=== PATIENT | female | born 2000 | race Caucasian/White ===

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

== ENCOUNTER 2022-03-10 15:10 | Outpatient (REF) | payer BC, SELFPAY ==
[2022-03-12 09:43] LABS: COVID-19 RT-PCR UVMMC Result Negative (Negative)
== END 2022-03-10 15:11 | disposition home or self-care (01) ==
LOC: LBN 15:10
PROVIDERS: Visit Provider Physician Assistant Medical
DX: Z20.822 Contact with and (suspected) exposure to COVID-19 (principal); J06.9 Acute upper respiratory infection, unspecified
CPT/HCPCS: U0003

== ENCOUNTER 2022-04-09 15:19 | Emergency (ER) | payer BC, SELFPAY ==
[2022-04-09 15:28] VITALS: BP 131/68; PULSE 93; RESP 16; TEMP 36.9; O2SAT 100
[2022-04-09 15:47] LABS: Bilirubin Negative (Negative); Blood Large (Negative); Clarity Cloudy (Clear); Glucose Negative (Negative); Ketones Negative (Negative); Leukocyte Esterase Moderate (Negative); Nitrite Negative (Negative); Specific Gravity >= 1.030 (1.005-1.025); Urobilinogen 0.2 EU/dL (Up TO 0.2)
[2022-04-09 16:03] LABS: Bacteria Rare HPF (Negative); C & S Indicated? Yes; Crystals Negative HPF (Negative); Epithelial Cells Rare HPF (Negative); Mucus Negative (Negative); Other Cells Few Renal (Negative); RBC >50 HPF (0-2)
--- NOTE | 2022-04-09 16:38 | ED.GENADUL_ITS ---
Discharge Plan Disposition Patient Disposition: Home Condition: Stable Discharge Details Clinical Impression: UTI (urinary tract infection) Primary Care Provider: Marietta Smith ED Provider: Emma Lam Home Meds and New Rx's Prescriptions: New phenazopyridine [Pyridium] 100 mg tablet 100 mg PO TID PRNQty: 6 0RF cephalexin 500 mg tablet 500 mg PO BID 7 Days Qty: 14 0RF No Action Mirena 20 mcg/24 hours (7 yrs) 52 mg intrauterine device 1 device intrauterine ONCE Qty: 1 0RF Vyvanse 10 mg capsule 10 mg PO QAM MDD 1 Qty: 30 0RF diphenhydramine HCl [Benadryl] 25 mg capsule 25 mg PO QHS PRN Zyrtec 10 mg Capsule 10 mg PO DAILY Discharge Instructions Instructions: Urinary Tract Infection in Women (ED) Additional Instructions: Your urine does show evidence of urinary tract infection, take the antibiotic with yogurt or probiotic daily as directed. Please take the antibiotic until is completely gone. Take the Pyridium as directed. This will turn your urine bright orange and may stain your close. Please take Tylenol or Ibuprofen with food every 4-6 hours as needed for pain and swelling. Follow up with women's wellness or primary care provider in 3-5 days for further eval regarding your IUD or if not feeling any better. Return to ED sooner if any worsening fever, vomiting, body aches chills worsening abdominal pain not relieved by Tylenol or ibuprofen or concerns. Increase oral fluids. Referrals: Marietta Smith MD [Primary Care Provider] - Return if symptoms worsen Olga Lidia Aiken CNM [[facility] NURSE SALES AUDIT CLERK] - 3 days Medical Decision Making 21-year-old female presents to the ER with chief complaint of dysuria, urinary hesitancy and suprapubic abdominal pressure over the last week. She is concerned for UTI. Urinalysis does show large blood, moderate leukocytes, greater than 50 RBCs 10- 20 WBCs culture is pending at this time. Patient has no flank pain to indicate kidney stone. I did instruct her to follow-up with women's wellness for any concerns of her IUD for further evaluation. I will place patient on cephalexin and give Pyridium first dose is given here and 2 bottles to go. Discussed home care and follow-up care strict return instructions patient she verbalizes understanding and is in agreement with the plan. This text was generated using [employer] dictation system, please disregard any oddities of phrase or misspellings. Lab Data Lab results reviewed: Yes I reviewed the patient's lab results. Labs: 04/09/22 15:40 Urine - Reflex from Ua Urine Culture - Pending Laboratory Tests Range/Units 04/09/22 15:40 Urine Color (Yellow) Yellow Urine Clarity (Clear) Cloudy Urine pH (5-8) 7.0 Ur Specific [place] (1.005-1.025) >= 1.030 H Urine Protein (Negative) mg/dL 100 H Urine Ketones (Negative) mg/dL Negative Urine Blood (Negative) Large H Urine Nitrite (Negative) Negative Urine Bilirubin (Negative) Negative Urine Urobilinogen (Up TO 0.2) EU/dL 0.2 Ur Leukocyte Esterase (Negative) Moderate H Urine RBC (0-2) HPF >50 H Urine WBC (0-5) HPF 10-20 H Ur Epithelial Cells (Negative) HPF Rare Urine Crystals (Negative) HPF Negative Urine Bacteria (Negative) HPF Rare Urine Mucus (Negative) Negative Urine Other (Negative) Few Renal Ur Culture Indicated? Yes Urine Glucose (Negative) mg/dL Negative HPI General Mode of arrival: ambulatory . Date/Time Provider Initiated Documentation: 04/09/22 15:29 . Limitations to Documentation: no limitations . Information obtained by: patient, RN notes reviewed and old records reviewed . HPI Narrative: 21-year-old female presents to the ER with chief complaint of dysuria, urinary hesitancy and suprapubic abdominal pressure over the last week. She is concerned for UTI. She does report some nausea no vomiting, no diarrhea, no abdominal bloating no other associated symptoms or concerns. Denies any fever. Past medical history includes anxiety, ADHD, nicotine dependence, Use, depersonalization derealization disorder. Related Data Home Medications Medication Instructions Recorded Confirmed diphenhydramine HCl 25 mg capsule 25 mg PO QHS PRN 10/19/21 04/09/22 (Benadryl) levonorgestrel 20 mcg/24 hours (8 1 device intrauterine ONCE #1 ea 11/01/21 04/09/22 yrs) 52 mg intrauterine device (Mirena) lisdexamfetamine 10 mg capsule 10 mg PO QAM #30 caps 12/29/21 04/09/22 (Vyvanse) cephalexin 500 mg tablet 500 mg PO BID 7 days #14 tabs 04/09/22 cetirizine 10 mg capsule (Zyrtec) 10 mg PO DAILY 04/09/22 04/09/22 phenazopyridine 100 mg tablet 100 mg PO TID PRN 6 doses #6 tabs 04/09/22 (Pyridium) Previous Rx's Medication Instructions Recorded levonorgestrel 20 mcg/24 hours (8 1 device intrauterine ONCE #1 ea 11/01/21 yrs) 52 mg intrauterine device (Mirena) lisdexamfetamine 10 mg capsule 10 mg PO QAM #30 caps 12/29/21 (Vyvanse) cephalexin 500 mg tablet 500 mg PO BID 7 days #14 tabs 04/09/22 phenazopyridine 100 mg tablet 100 mg PO TID PRN 6 doses #6 tabs 04/09/22 (Pyridium) Allergies Allergy/AdvReac Type Severity Reaction Status Date / Time nickel Allergy Verified 04/09/22 15:31 General Stated Complaint: Urinary ELI: 4 Review of Systems All systems reviewed & are unremarkable except as noted in HPI and below PFSH All Active Problems (Updated 04/09/22 @ 16:45 by Emma Lam NP) UTI (urinary tract infection) (Acute) Marijuana use (Acute) Nicotine dependence (Acute) IUD surveillance (Acute 11/01/21) Mirena Lipoblastoma (Acute) Bipolar 2 disorder, major depressive episode (Chronic) with worsening anxiety and worsening dissociative symptoms during depression Anxiety (Chronic) Depersonalization-derealization disorder (Chronic) Myopia of both eyes (Chronic 11/13/14) Wears glasses ADHD (attention deficit hyperactivity disorder), combined type (Chronic) Medical History COVID-19 moderate symptoms, normal EKG, persistent brain fog and some worsening disassociative thoughts Menorrhagia with irregular cycle (03/01/17) Managed with Mirena Surgical History cyst removal (~2012) 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 Pets and animals: Yes (3 dogs) Pets and animals: dog(s) Sexually active: Yes Do you think of yourself as: straight/heterosexual Current gender identity: female Do you feel safe at home: Yes Do you feel safe in your relationship?: Yes Female Reproductive History Menstrual Age of Menarche: 15 Duration of menses: 3-5 days control method: progestin IUCD and condoms History History 0 Para Hx # Term Pregnancies Multiple births Hx # Pregnancies Ectopic pregnancies AB induced Hx Number of Living Children AB spontaneous Exam Narrative Exam Narrative: Constitutional: Alert and oriented x3. Appears stated age. Normal body habitus. Head: Normocephalic, no trauma. Eyes: Pupils PERRL, Red reflex noted, EOM's intact. Eyelids symmetrical without lesions, discharge, or swelling. Chest: RRR, Normal S1, S2, distal pulses intact. Resp: Lungs clear to auscultation bilaterally, no wheezes, rales, or rhonchi. Abdomen: Soft, non-distended, Normoactive bowel sounds all 4 quads. Mild suprapubic tenderness no right lower quadrant a small mid palpation. Musculoskeletal: Normal gait, 5/5 strength to all four extremities. Skin: No suspicious rashes or lesions. Capillary refill less than 2 sec. Hematologic/Lymphatic: No ecchymosis, no lymphadenopathy. Course Vital Signs Vital signs: Vital Signs Temperature 36.9 C 04/09/22 15:28 Pulse 93 H 04/09/22 15:28 Respiratory Rate 16 04/09/22 15:28 Blood Pressure 131/68 04/09/22 15:28 Pulse Oximetry 100 04/09/22 15:28 Temperature 36.9 C 04/09/22 15:28 Temperature Source Skin 04/09/22 15:28 Pulse 93 H 04/09/22 15:28 Respiratory Rate 16 04/09/22 15:28 Respiratory Effort 04/09/22 15:32 Blood Pressure 131/68 04/09/22 15:28 Blood Pressure Position Sitting 04/09/22 15:28 Pulse Oximetry 100 04/09/22 15:28 Oxygen Delivery Method Room Air 04/09/22 15:28 Oxygen Flow Rate 0 04/09/22 15:28 Pain Level 7 04/09/22 15:53 Lab/Test Results Lab/Test Results: 04/09/22 15:40 Urine - Reflex from Ua Urine Culture - Pending Laboratory Tests Range/Units 04/09/22 15:40 Urine Color (Yellow) Yellow Urine Clarity (Clear) Cloudy Urine pH (5-8) 7.0 Ur Specific [place] (1.005-1.025) >= 1.030 H Urine Protein (Negative) mg/dL 100 H Urine Ketones (Negative) mg/dL Negative Urine Blood (Negative) Large H Urine Nitrite (Negative) Negative Urine Bilirubin (Negative) Negative Urine Urobilinogen (Up TO 0.2) EU/dL 0.2 Ur Leukocyte Esterase (Negative) Moderate H Urine RBC (0-2) HPF >50 H Urine WBC (0-5) HPF 10-20 H Ur Epithelial Cells (Negative) HPF Rare Urine Crystals (Negative) HPF Negative Urine Bacteria (Negative) HPF Rare Urine Mucus (Negative) Negative Urine Other (Negative) Few Renal Ur Culture Indicated? Yes Urine Glucose (Negative) mg/dL Negative POC- Test(urine) Negative PAWSS Have you Ever Experienced Previous Episodes of Alcohol Withdrawal?: No Have you ever Experienced Withdrawal Seizures?: No Have you ever Experienced Delirium Tremens(DT)s?: No Have you ever undergone Alcohol Rehabilitation Treatment (i.e, inpt ot outpatient treatment programs)?: No Have you ever Experienced Blackouts?: No Have you ever Combined Alcohol with other Downers within the last 90 days?: No Have you ever Combined Alcohol with any other Substance of Abuse during the last 90 days?: No Positive Blood Alcohol level on Presentation? [PCS.BAL]: No Evidence of Increased Autonomic Activity (i.e. HR>120, tremor, sweating, agitation, nausea)?: No Result: 0
[2022-04-09] MEDS: Cephalexin 500 MG CAP PO (16:53)
[2022-04-09] MEDS: Cephalexin 500 MG CAP, 2 CAPS/BTL PO (16:53)
[2022-04-09] MEDS: Phenazopyridine 100 MG TAB PO (16:53)
[2022-04-09] MEDS: Phenazopyridine 100 MG TAB, 2 TABS/BTL PO (16:54)
== END 2022-04-09 16:58 | disposition home or self-care (01) ==
PROVIDERS: Emergency Provider Registered Nurse Emergency
DX: N39.0 Urinary tract infection, site not specified (principal); B96.89 Other specified bacterial agents as the cause of diseases classified elsewhere
CPT/HCPCS: 81025; 99283; 81003; 81015; 87086

== ENCOUNTER 2022-11-24 21:19 | Outpatient (REF) | payer BC, SELFPAY | END 2022-11-24 21:20 | disposition home or self-care (01) | LOC: LBN 21:19 | PROVIDERS: Visit Provider Physician Assistant Medical | DX: R09.81 Nasal congestion (principal) | CPT/HCPCS: 87070 ==

== ENCOUNTER 2022-12-30 18:09 | Emergency (ER) | payer MEDICAID, SELFPAY ==
[2022-12-30 18:12] VITALS: PULSE 85; RESP 24; TEMP 36.9; O2SAT 100
--- NOTE | 2022-12-30 18:30 | DI.CT_ITS ---
Exam(s) CT HEAD WO EXAM: CT HEAD WO CLINICAL HISTORY: hit front of head one week ago, dizzy, nausea. TECHNIQUE: Imaging Protocol: Axial computed tomography images with coronal and sagittal reformatted images were created and reviewed COMPARISON: No exams were available for comparison FINDINGS: There are no skull fractures. There is no fluid in the visualized paranasal sinuses. There is no evidence of intracranial hemorrhage, mass effect, or shift of midline structures. There are no extra-axial fluid collections. The ventricles are not enlarged or shifted and there is no blo od within the ventricular system nor within the basal cisterns. IMPRESSION: No acute intracranial findings on this noninfused CT scan of the brain. RADIATION DOSE DELIVERED: 693.95mGy.cm Total DLP DATA REPOSITORY: All CT scans at this facility are submitted to the National Radiology Data Registry (NRDR) Dose Index Registry (DIR) with the [employer] (ACR). RADIATION OPTIMIZATION: All CT scans at this facility use at least one of these dose optimization te chniques: automated exposure control; mA and/or kV adjustment per patient size (includes targeted exa ms where dose is matched to clinical indication); or iterative reconstruction.
[2022-12-30] MEDS: Dexamethasone 10 MG/ML VIAL PO (19:05)
[2022-12-30] MEDS: Ondansetron O.D.T. 4 MG TABEF SL (19:05)
--- NOTE | 2022-12-30 19:05 | W.ED.GENAD ---
Discharge Plan Disposition Patient Disposition: Home Condition: Improving Discharge Details Chief Complaint: HeadInjury Clinical Impression: Head injury, Concussion Primary Care Provider: Marietta Smith ED Provider: Rohith Johnson Home Meds and New Rx's Prescriptions: No Action Mirena 20 mcg/24 hours (7 yrs) 52 mg intrauterine device 1 device intrauterine ONCE Qty: 1 0RF diphenhydramine HCl [Benadryl] 25 mg capsule 25 mg PO QHS PRN ketoconazole 2 % shampoo 1 applic topical ONCE Qty: 120 0RF Rx Instructions: apply once daily for 3 days, repeat in 2 weeks as needed Vyvanse 10 mg capsule 10 mg PO QAM MDD 1 Qty: 30 0RF Zyrtec 10 mg Capsule 10 mg PO DAILY Discharge Instructions Instructions: Concussion (ED), Head Injury (ED) Additional Instructions: Please practice brain rest which includes avoiding bright lights and loud noises as well as heavy stimulation. Take tomorrow off from work. Please follow-up with your primary care physician and neurology. Please return to the emergency department for any worsening symptoms Stand Alone Forms: Work Release Medical Decision Making 22-year-old female presents 1 week after excellently running headfirst into a tree sustaining superficial laceration to brow, no loss of consciousness, since then has had headache nausea and dizziness. No vomiting. No other trauma. Patient neurologically intact alert and oriented, cranial nerves II through XII intact, 5 and 5 strength upper and lower extremities, ambulatory without ataxia. No signs of thoracoabdominal or extremity trauma. Likely concussion however given consistent symptomatology will obtain CT head to assess for intracerebral hemorrhage. Trial of dexamethasone and Zofran. Close reassessment. Likely home with concussion precautions and neurology follow-up 20: 18 patient resting comfortably neurologically intact. CT unremarkable for intracerebral hemorrhage skull fracture or edema. Likely symptoms related to concussion. Feeling better after medications. Given home care instructions and return precautions. Will be given neurology follow-up HPI General Date/Time Provider Initiated Documentation: 12/30/22 18:25. HPI Narrative: 22-year-old female presents 1 week after sustaining head injury, ran into a tree with her forehead, no loss of conscious, did sustain superficial laceration to brow that has healed since then, has had intermittent dizziness and nausea and headaches since this event. Related Data Home Medications Medication Instructions Recorded Confirmed diphenhydramine HCl 25 mg capsule 25 mg PO QHS PRN 10/19/21 10/24/22 (Benadryl) levonorgestrel 21 mcg/24 hours (8 1 device intrauterine ONCE #1 ea 11/01/21 10/24/22 yrs) 52 mg intrauterine device (Mirena) cetirizine 10 mg capsule (Zyrtec) 10 mg PO DAILY 04/09/22 10/24/22 lisdexamfetamine 10 mg capsule 10 mg PO QAM #30 caps 07/14/22 10/24/22 (Vyvanse) ketoconazole 2 % shampoo 1 applic topical ONCE #120 mL 10/24/22 10/24/22 Previous Rx's Medication Instructions Recorded levonorgestrel 21 mcg/24 hours (8 1 device intrauterine ONCE #1 ea 11/01/21 yrs) 52 mg intrauterine device (Mirena) lisdexamfetamine 10 mg capsule 10 mg PO QAM #30 caps 07/14/22 (Vyvanse) ketoconazole 2 % shampoo 1 applic topical ONCE #120 mL 10/24/22 Allergies Allergy/AdvReac Type Severity Reaction Status Date / Time nickel Allergy Verified 10/24/22 15:52 General Stated Complaint: HeadInjury ELI: 3 Review of Systems Narrative: Review of Systems Constitutional: negative Eyes: negative ENT: negative Cardiovascular: negative Respiratory: negative Gastrointestinal: negative : negative Musculoskeletal: negative Skin: negative Neurologic: Headache dizziness nausea Psych: negative PFSH All Active Problems (Updated 12/30/22 @ 20:14 by Rohith Johnson MD) Head injury (Acute) Concussion (Acute) Fatigue (Acute) Dysuria (Acute) Marijuana use (Acute) Nicotine dependence (Acute) IUD surveillance (Acute 11/01/21) Mirena Lipoblastoma (Acute) Bipolar 2 disorder, major depressive episode (Chronic) with worsening anxiety and worsening dissociative symptoms during depression Anxiety (Chronic) Depersonalization-derealization disorder (Chronic) Myopia of both eyes (Chronic 11/13/14) Wears glasses ADHD (attention deficit hyperactivity disorder), combined type (Chronic) Medical History COVID-19 moderate symptoms, normal EKG, persistent brain fog and some worsening disassociative thoughts Menorrhagia with irregular cycle (03/01/17) Managed with Mirena Surgical History cyst removal (~2012) 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 Pets and animals: Yes (3 dogs) Pets and animals: dog(s) Sexually active: Yes Do you think of yourself as: straight/heterosexual Current gender identity: female Do you feel safe at home: Yes Do you feel safe in your relationship?: Yes Female Reproductive History Menstrual Age of Menarche: 15 Duration of menses: 3-5 days control method: progestin IUCD and condoms History History 0 Para Hx # Term Pregnancies Multiple births Hx # Pregnancies Ectopic pregnancies AB induced Hx Number of Living Children AB spontaneous Exam Narrative Exam Narrative: Physical Examination General: alert, awake, cooperative, resting comfortably, no acute distress HEENT: normocephalic, superficial linear scar to right forehead/brow hemostatic no signs of infection no signs of foreign body; PERRL, EOM intact, conjunctiva normal; no nasal discharge; moist mucous membranes, oral and pharyngeal mucosa normal, tolerating secretions Neck: supple, trachea midline; full ROM Chest: normal to inspection Respiratory: normal respiratory effort, speaking in full sentences, clear to auscultation, no wheezing, rales or rhonchi Cardiac: regular rate, regular rhythm, S1S2 intact, no murmurs rubs or gallops GI: abdomen soft, non-tender, non-distended; no palpable mass or hepatosplenomegaly Skin: no lesions, rashes or trauma appreciated Neuro: AAOx3, normal speech, moving all extremities; cranial nerves II through XII intact, 5 out of 5 strength upper and lower extremities, ambulatory without assistance no ataxia Extremities: Ataxia Psych: Appropriate mood and affect Course Vital Signs Vital signs: Vital Signs Temperature 36.9 C 12/30/22 18:12 Pulse 85 12/30/22 18:12 Respiratory Rate 24 12/30/22 18:12 Pulse Oximetry 100 12/30/22 18:12 Temperature 36.9 C 12/30/22 18:12 Temperature Source Oral 12/30/22 18:12 Pulse 85 12/30/22 18:12 Respiratory Rate 12/30/22 18:12 Blood Pressure Position Sitting 12/30/22 18:12 Pulse Oximetry 100 12/30/22 18:12 Oxygen Delivery Method Room Air 12/30/22 18:12 Oxygen Flow Rate 0 12/30/22 18:12 Pain Level 4 12/30/22 18:12
--- NOTE | 2022-12-30 19:41 | DI.VRAD_ITS ---
PROCEDURE INFORMATION: Exam: CT Head Without Contrast Exam date and time: 12/30/2022 7:19 PM Age: 22 years old Clinical indication: Injury or trauma; Other: Hit front of head one week ago, dizzy, nausea TECHNIQUE: Imaging protocol: Computed tomography of the head without contrast. COMPARISON: SOFT TISSUE HEAD OR NECK US 03/23/2017 12:31 PM FINDINGS: Brain: Normal. No hemorrhage. Unremarkable white matter. No mass effect. Cerebral ventricles: No ventriculomegaly. Paranasal sinuses: Visualized sinuses are unremarkable. No fluid levels. Chronic mucoperiosteal thickening in the left aspect of the sphenoid sinus Mastoid air cells: Visualized mastoid air cells are well aerated. Bones/joints: Left nasal turbinate cameron bullosa. No acute fracture. Soft tissues: Unremarkable. IMPRESSION: 1. No acute intracranial abnormality. 2. No intracranial hemorrhage. 3. No skull fracture. Dictated and Authenticated by: Chandana Arrington MD. Ordering:NIDIA Newberry MD
[2022-12-30 20:31] VITALS: BP 112/61; PULSE 75; TEMP 36.6; O2SAT 99
--- NOTE | 2022-12-30 22:11 | NUR.NOTE ---
Referral faxed to [facility] Neurology for follow up on concussion next week.
== END 2022-12-30 20:27 | disposition home or self-care (01) ==
PROVIDERS: Emergency Provider Emergency Medicine
DX: S06.0X0A Concussion without loss of consciousness, initial encounter (principal); W22.8XXA Striking against or struck by other objects, initial encounter
CPT/HCPCS: 81025; 99284; 70450; 99283; J1100

== ENCOUNTER 2023-05-13 15:15 | Outpatient (REF) | payer MEDICAID, SELFPAY ==
[2023-05-13 15:27] LABS: Source Nasal/Nares
[2023-05-13 16:14] LABS: COVID-19 PCR Negative (Negative)
== END 2023-05-13 15:16 | disposition home or self-care (01) ==
LOC: LBN 15:15
PROVIDERS: Visit Provider Physician Assistant Medical
DX: J02.9 Acute pharyngitis, unspecified (principal); Z20.822 Contact with and (suspected) exposure to COVID-19
CPT/HCPCS: 87635; 87070

== ENCOUNTER 2023-08-29 15:32 | Outpatient (REF) | payer MEDICAID, SELFPAY ==
[2023-08-31 14:43] LABS: Chlamydia Result Negative (Negative); GC Result Negative (Negative)
== END 2023-08-29 15:33 | disposition home or self-care (01) ==
LOC: LBN 15:32
PROVIDERS: Visit Provider Nurse Practitioner Women's Health
DX: N76.0 Acute vaginitis (principal); Z11.3 Encounter for screening for infections with a predominantly sexual mode of transmission
CPT/HCPCS: 87491; 87591; 87480; 87510; 87660

== ENCOUNTER 2024-05-16 14:12 | Emergency (ER) | payer MEDICAID, SELFPAY ==
[2024-05-16 14:19] VITALS: BP 101/54; PULSE 100; RESP 28; TEMP 37.3; O2SAT 100
--- NOTE | 2024-05-16 14:45 | RT.EKG_ITS ---
APPROVED REPORT Exam: Resting ECG Reason for Exam: palpitations Patient Location: E HR:90 bpm ECG Measurements Heart Rate 90 AXIS VA 154 P 50 QRSd 99 QRS 114 QT 324 T 57 QTc 396 Conclusion Sinus rhythm, rate 90 No interval abnormalities No STEMI
[2024-05-16] MEDS: LORazepam 0.5 MG TAB PO (14:58)
[2024-05-16] MEDS: Ketorolac 15 MG/ML VIAL IM (14:58)
[2024-05-16] MEDS: Acetaminophen 500 MG TAB 1000 MG PO (14:58)
[2024-05-16 15:03] VITALS: RESP 18
--- NOTE | 2024-05-16 15:30 | DI.CT_ITS ---
Exam(s) CT HEAD WO EXAM: CT HEAD WO CLINICAL HISTORY: JOY, L. eye pain, different from typical migraines. TECHNIQUE: Imaging Protocol: Axial computed tomography images with coronal and sagittal reformatted images were created and reviewed COMPARISON: CT CT HEAD WO from 12/30/2022 FINDINGS: Ventricles and Extra axial spaces: Normal in size and morphology for the patient's age. Hemorrhage: None. Cerebral parenchyma: No evidence of acute infarct or mass. Midline shift: None. Brainstem/Cerebellum: Normal. Calvarium: Normal. Visualized Paranasal sinuses:Clear. Mastoids: Clear. Soft Tissues: Unremarkable. ORBITS: Unremarkable. PITUITARY: Not enlarged. IMPRESSION: No acute intracranial process. RADIATION DOSE DELIVERED: Total DLP DATA REPOSITORY: All CT scans at this facility are submitted to the National Radiology Data Registry (NRDR) Dose Index Registry (DIR) with the [employer] (ACR). RADIATION OPTIMIZATION: All CT scans at this facility use at least one of these dose optimization te chniques: automated exposure control; mA and/or kV adjustment per patient size (includes targeted exa ms where dose is matched to clinical indication); or iterative reconstruction.
[2024-05-16 15:35] LABS: COVID-19 PCR Negative (Negative); Influenza A PCR Negative (Negative); Influenza B PCR Negative (Negative); RSV PCR Negative (Negative)
[2024-05-16 15:36] LABS: Source Nasopharynx
[2024-05-16 15:39] VITALS: BP 138/52; PULSE 88; RESP 20; O2SAT 99
--- NOTE | 2024-05-16 16:24 | ED.GENADUL_ITS ---
Discharge Plan Disposition Patient Disposition: Home Condition: Stable Discharge Details Clinical Impression: Migraine headache with aura, Panic attack, Upper respiratory infection, viral Primary Care Provider: Cheryl Polanco ED Provider: Amara Rodriguez Home Meds and New Rx's Prescriptions: New hydroxyzine HCl 25 mg tablet 25 mg PO TID PRN (Reason: anxiety) Qty: 14 0RF No Action Mirena 20 mcg/24 hours (7 yrs) 52 mg intrauterine device 1 device intrauterine ONCE Qty: 1 0RF diphenhydramine HCl [Benadryl] 25 mg capsule 25 mg PO QHS PRN lisdexamfetamine [Vyvanse] 10 mg capsule 10 mg PO QAM MDD 1 Qty: 30 0RF Discharge Instructions Instructions: Panic Attack ED Additional Instructions: You were seen in the emergency department today for evaluation of medical complaints including a headache, recent viral upper respiratory infection, and a panic attack. In our department you have a full physical examination performed, had an EKG that did not show any abnormalities in your heart, and had a CT scan of your brain that did not show any signs of bleeding, mass, or other abnormalities. You received medications for management of your anxiety as well as your headache. At this time, it is safe for you to go home and follow-up with your outpatient providers including your therapist as well as your primary care doctor. I did provide you a short course of hydroxyzine, which you can trial as needed for panic and anxiety. Please use caution as this medication can cause drowsiness, and avoid driving or mixing with alcohol. Please follow- up with your primary care provider in the next few days to discuss this visit and any symptoms that change, worsen, or persist. Thank you for allowing us to be part of your care. Discharge Data Discharge Date/Time-TO BE ENTERED AT DEPARTURE: 05/16/24 17:12 HPI General Mode of arrival: ambulatory . Date/Time Provider Initiated Documentation: 05/16/24 14:15 . Limitations to Documentation: no limitations . Information obtained by: patient, family and old records reviewed . HPI Narrative: HPI: This is a 23-year-old female patient with a history of bipolar 2, ADHD, anxiety, who is presenting for evaluation of anxiety and headache. She states that she has a history of migraines, states that she has had excessive stress over the last 3 weeks, working significantly, restarting school and has not had any time off to rest or recover. She also feels like she is starting to get sick, with runny nose, subjective fever, and bodyaches. She reports that she started having a panic attack and felt like she was not in her body, felt like she was going to , and states that she is having intermittent headaches that does not feel exactly typical for her migraines. She has noted a sensation of pain behind her left eye, which comes and goes and is associated with brief changes in vision, noted some spasming and flexing of her left hand during her panic attack on the way here. The patient reports that she has a safe place to reside, states that she is not experiencing suicidal or homicidal thoughts, though she has in the heat of her panic attacks wished that she was not experiencing it. She has an outpatient counselor that she met with yesterday and feels very well supported from a mental health standpoint. She states that she has not had anything to eat yet today, states that she uses nicotine and alcohol on the weekends but no illicit substances reported. She has not tried any medications in the outpatient environment for management of her symptoms. Exam: Gen: Awake and alert, appears acutely anxious, tearful HEENT: Non-icteric sclera Neck: Supple Lungs: No apparent respiratory distress, normal respiratory effort. Lung sounds clear and equal bilaterally CV: Appears well perfused, heart with regular rate and rhythm, strong distal pulses Abdomen: Non-distended MSK: Moves 4 extremities without apparent limitation in ROM Skin: Visualized skin without rashes, cyanosis. Neuro: Normal Gait, cranial nerves II through XII intact and symmetrical bilaterally, 5 out of 5 strength x 4 extremities, no sensory deficits. Psych: Denying active suicidal or homicidal ideation MDM: This is a 23-year-old female patient presenting for evaluation of anxiety and headache. My differential includes but is not limited to primary anxiety disorder, panic attack, migraine, tension headache, cluster headache. I c ertainly considered subarachnoid hemorrhage, intracranial mass lesion, though I am reassured by the patient's intact neurologic examination. I considered arrhythmia, metabolic and electrolyte derangements, anemia, dehydration. I did shared decision-making conversation with the patient, who states that she wants to avoid any IVs, she is amenable to intramuscular medications. I am reassured by her hemodynamic stability, I do not feel like she absolutely requires intravenous access for laboratory studies or advanced imaging. We will obtain a Fluvid, EKG, and provided patient with a dose of Tylenol, Toradol, and a small dose of Ativan for her anxiety. ED Course: On reassessment, the patient reports that her anxiety has improved, but she is continuing to feel headache and is very concerned that she could have something intracranially causing her symptoms given the change from her baseline migraines. She is desiring of advanced imaging and therefore we will proceed with Noncon head CT. CT was independently reviewed by myself, and shows no evidence of intracranial hemorrhage. This did offer the patient some reassurance, and at this time she is desiring of discharge home. I did provide her with a short course of hydroxyzine for ongoing panic symptoms, and counseled her on avoidance of driving or mixing this medication with alcohol as it can cause sedation. The patient is well tied in with outpatient resources including therapy, and I recommended PCP follow-up to discuss any ongoing headache or panic symptoms. At this time, the patient has had a full medical evaluation and is safe for discharge to home. They are hemodynamically stable, ambulatory, and tolerating PO. They are understanding of the follow-up plan and return precautions. They left our facility without incident. Amara Rodriguez MD Related Data Home Medications ?Medication ?Instructions ?Recorded ?Confirmed diphenhydramine HCl 25 mg capsule 25 mg PO QHS PRN 10/19/21 05/16/24 (Benadryl) levonorgestrel 21 mcg/24 hr (up to 1 device intrauterine ONCE #1 ea 11/01/21 05/16/24 8 years) 52 mg intrauterine device (Mirena) lisdexamfetamine 10 mg capsule 10 mg PO QAM #30 caps 07/14/22 05/16/24 (Vyvanse) hydroxyzine HCl 25 mg tablet 25 mg PO TID PRN anxiety #14 tabs 05/16/24 Previous Rx's ?Medication ?Instructions ?Recorded levonorgestrel 21 mcg/24 hr (up to 1 device intrauterine ONCE #1 ea 11/01/21 8 years) 52 mg intrauterine device (Mirena) lisdexamfetamine 10 mg capsule 10 mg PO QAM #30 caps 07/14/22 (Vyvanse) hydroxyzine HCl 25 mg tablet 25 mg PO TID PRN anxiety #14 tabs 05/16/24 Allergies Allergy/AdvReac Type Severity Reaction Status Date / Time nickel Allergy Other (See Verified 12/06/23 09:12 Comment) General Stated Complaint: Anxiety ELI: 4 Course Vital Signs Vital signs: Vital Signs Temperature 37.3 C 05/16/24 14:19 Pulse 100 H 05/16/24 14:19 Respiratory Rate 28 H 05/16/24 14:19 Blood Pressure 101/54 L 05/16/24 14:19 Pulse Oximetry 100 05/16/24 14:19 Temperature 37.3 C 05/16/24 14:19 Temperature Source Temporal Artery Scan 05/16/24 14:19 Pulse 88 05/16/24 15:39 Respiratory Rate 20 05/16/24 15:39 Respiratory Effort Normal, Non-Labored 05/16/24 15:03 Respiratory Depth Normal 05/16/24 15:03 Respiratory Pattern Normal 05/16/24 15:03 Blood Pressure 138/52 L 05/16/24 15:39 Blood Pressure Position Sitting 05/16/24 14:19 Pulse Oximetry 99 05/16/24 15:39 Oxygen Delivery Method Room Air 05/16/24 15:39 Oxygen Flow Rate 0 05/16/24 15:39 Pain Level 0 05/16/24 14:19 Lab/Test Results Lab/Test Results: Laboratory Tests Range/Units 05/16/24 14:49 COVID-19 Source Nasopharynx SARS-CoV-2 (PCR) (Negative) Negative Influenza Type A (PCR) (Negative) Negative Influenza Type B (PCR) (Negative) Negative RSV (PCR) (Negative) Negative POC- Test(urine) Negative Medical Decision Making Quality:SDOH Health Related Social Needs: No Data to Display PFSH All Active Problems (Updated 05/16/24 @ 17:00 by Amara Rodriguez MD) Upper respiratory infection, viral (Acute) Panic attack (Acute) Migraine headache with aura (Acute) Co-occurrence of multiple psychiatric disorders (Acute) Encounter for well adult exam without abnormal findings (Acute) Screening examination for STI (Acute) Food insecurity (Acute) Nicotine dependence (Acute) IUD surveillance (Acute 11/01/21) Mirena Lipoblastoma (Chronic) Bipolar 2 disorder, major depressive episode (Chronic) with worsening anxiety and worsening dissociative symptoms during depression ADHD (attention deficit hyperactivity disorder), combined type (Chronic) Anxiety (Chronic) Depersonalization-derealization disorder (Chronic) Myopia of both eyes (Chronic 11/13/14) Wears glasses Medical History (Updated 05/16/24 @ 17:00 by Amara Rodriguez MD) Post concussive syndrome COVID-19 moderate symptoms, normal EKG, persistent brain fog and some worsening disass ociative thoughts Menorrhagia with irregular cycle (03/01/17) Managed with Mirena Surgical History 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 (~2012) R eye Family History Mother Healthy adult Mental disorder anxiety Father Healthy adult Alcohol abuse in remission Other Anxiety Social History (Updated 12/06/23 @ 09:14 by Ayleen Adamson RN) Smoking/Tobacco Use Status: Current every day Tobacco Type: e-cigarettes Tobacco: How many years used: 3 Quit status: not considering quitting Smoking risk assessment performed?: Yes Alcohol Intake: never Drug use: Never Substance use type: does not use Adopted: No Caregiver/Support person: No Foster care: No Household members: none Housing: other Details: Dorms at [facility] Number of Children: 0 number of grandchildren: 0 Communication Needs: Corrective Lenses Education Level: college Details: [employer] at [employer] fall 2023, living in dorm. Pets and animals: Yes (3 dogs at dads) Pets and animals: dog(s) Sexually active: Yes Do you think of yourself as: straight/heterosexual Current gender identity: female Do you feel safe at home: Yes Do you feel safe in your relationship?: Yes Female Reproductive History Menstrual Age of Menarche: 15 Duration of menses: 3-5 days control method: progestin IUCD and condoms History History 0 Para Hx # Term Pregnancies Multiple births Hx # Pregnancies Ectopic pregnancies AB induced Hx Number of Living Children AB spontaneous
[2024-05-16 16:48] VITALS: BP 108/50; PULSE 88; RESP 16; O2SAT 100
[2024-05-16 16:52] VITALS: BP 108/50; PULSE 88; RESP 16; TEMP 36.6; O2SAT 100
== END 2024-05-16 17:12 | disposition home or self-care (01) ==
PROVIDERS: Emergency Provider Emergency Medicine; PCP Nurse Practitioner Family
DX: G43.109 Migraine with aura, not intractable, without status migrainosus (principal); F41.0 Panic disorder [episodic paroxysmal anxiety]; J06.9 Acute upper respiratory infection, unspecified; B97.89 Other viral agents as the cause of diseases classified elsewhere; F17.290 Nicotine dependence, other tobacco product, uncomplicated
CPT/HCPCS: 81025; 87637; 93005; 96372; 99285; 70450; 93010; J1885

== ENCOUNTER 2024-05-18 11:10 | Emergency (ER) | payer MEDICAID, SELFPAY ==
[2024-05-18 11:14] VITALS: BP 102/54; PULSE 123; RESP 18; TEMP 37.4; O2SAT 96
--- NOTE | 2024-05-18 11:15 | DI.RAD_ITS ---
Exam(s) XR CHEST 2V PA LATERAL EXAM: XR CHEST 2V PA LATERAL CLINICAL HISTORY: fever, cough. TECHNIQUE: 2D digital imaging was performed. COMPARISON: No exams were available for comparison FINDINGS: 2 views: Heart size is normal. The mediastinum is not widened. Lungs are clear. No infiltrates nor pleural effusions. IMPRESSION: No acute pulmonary findings. DATA REPOSITORY: RADIATION DOSE DELIVERED:
[2024-05-18 11:21] VITALS: BP 102/54; PULSE 118; RESP 16; TEMP 37.4; O2SAT 96
--- NOTE | 2024-05-18 11:26 | ED.GENADUL_ITS ---
Discharge Plan Disposition Patient Disposition: Home Condition: Stable Discharge Details Clinical Impression: Cough, Influenza A Primary Care Provider: Cheryl Polanco ED Provider: Wilmer Chandler Home Meds and New Rx's Prescriptions: New ondansetron 4 mg tablet,disintegrating 4 mg PO Q8H PRN (Reason: nausea and vomiting) Qty: 30 0RF Continued Mirena 20 mcg/24 hours (7 yrs) 52 mg intrauterine device 1 device intrauterine ONCE Qty: 1 0RF diphenhydramine HCl [Benadryl] 25 mg capsule 25 mg PO QHS PRN lisdexamfetamine [Vyvanse] 10 mg capsule 10 mg PO QAM MDD 1 Qty: 30 0RF hydroxyzine HCl 25 mg tablet 25 mg PO TID PRN (Reason: anxiety) Qty: 14 0RF HPI General Mode of arrival: ambulatory . Date/Time Provider Initiated Documentation: 05/18/24 11:11 . Limitations to Documentation: no limitations . Information obtained by: patient . History of Present Illness 23 year old F presents to the emergency department with the chief complaint of fever, body aches, cough, migraine, described as moderate, Quality is described as aching, Patient started experiencing this day(s) (3) and it has been intermittent. No relieving factors improve symptom(s), No exacerbating factors reported . Patient notes denies chest pain and shortness of breath. Patient did receive the following treatments prior to arrival, none Related Data Home Medications ?Medication ?Instructions ?Recorded ?Confirmed diphenhydramine HCl 25 mg capsule 25 mg PO QHS PRN 10/19/21 05/18/24 (Benadryl) levonorgestrel 21 mcg/24 hr (up to 1 device intrauterine ONCE #1 ea 11/01/21 05/18/24 8 years) 52 mg intrauterine device (Mirena) lisdexamfetamine 10 mg capsule 10 mg PO QAM #30 caps 07/14/22 05/18/24 (Vyvanse) hydroxyzine HCl 25 mg tablet 25 mg PO TID PRN anxiety #14 tabs 05/16/24 05/18/24 ondansetron 4 mg disintegrating 4 mg PO Q8H PRN nausea and 05/18/24 tablet vomiting #30 tabs Previous Rx's ?Medication ?Instructions ?Recorded levonorgestrel 21 mcg/24 hr (up to 1 device intrauterine ONCE #1 ea 11/01/21 8 years) 52 mg intrauterine device (Mirena) lisdexamfetamine 10 mg capsule 10 mg PO QAM #30 caps 07/14/22 (Vyvanse) hydroxyzine HCl 25 mg tablet 25 mg PO TID PRN anxiety #14 tabs 05/16/24 ondansetron 4 mg disintegrating 4 mg PO Q8H PRN nausea and 05/18/24 tablet vomiting #30 tabs Allergies Allergy/AdvReac Type Severity Reaction Status Date / Time nickel Allergy Other (See Verified 05/18/24 11:19 Comment) General Stated Complaint: Fever ELI: 3 Review of Systems All systems reviewed & are unremarkable except as noted in HPI and below Constitutional Constitutional: Reports chills, Reports fever(s), Reports headache(s) and Denies weakness ENT Ears, Nose, Mouth, and Throat: Reports headache(s) Cardiovascular Cardiovascular: Denies chest pain and Denies dyspnea Respiratory Respiratory: Reports cough and Denies dyspnea Gastrointestinal Gastrointestinal: Denies abdominal pain, Denies nausea and Denies vomiting Neurologic Neurologic: Reports headache(s) and Denies weakness Exam Const General: no acute distress Orientation: alert HENIN Head: normal to inspection Ears: external ears normal and TM's normal bilaterally General nose exam: external nose normal Mouth: oral mucosae normal, oropharynx normal and moist mucous membranes Eyes General: appearance normal, both eyes and all related structures Neck Neck: normal visual inspection and no meningeal signs Resp Effort & Inspection: normal respiratory effort and able to speak in complete sentences Auscultation: clear to auscultation bilaterally Cardio Rate: regular rate Skin General skin exam: no rashes or lesions noted Neuro General: patient alert and patient oriented x3 Extrem General: normal to inspection Psych Mental Status: mental status grossly normal Course Vital Signs Vital signs: Vital Signs Temperature 37.4 C 05/18/24 11:14 Pulse 123 H 05/18/24 11:14 Respiratory Rate 18 05/18/24 11:14 Blood Pressure 102/54 L 05/18/24 11:14 Pulse Oximetry 96 05/18/24 11:14 Temperature 37.4 C 05/18/24 11:21 Temperature Source Tympanic 05/18/24 11:21 Pulse 118 H 05/18/24 11:21 Respiratory Rate 16 05/18/24 11:21 Blood Pressure 102/54 L 05/18/24 11:21 Blood Pressure Position Sitting 05/18/24 11:21 Pulse Oximetry 96 05/18/24 11:21 Oxygen Delivery Method Room Air 05/18/24 11:21 Oxygen Flow Rate 0 05/18/24 11:14 Pain Level 6 05/18/24 11:21 Medical Decision Making 23-year-old female who states she has a history of migraines, ADHD, who comes in with 2 to 3 days of intermittent migraines and low-grade fevers but this morning she checked her fever and it was 105. She also notes she has had a cough. Denies any vomiting, neck stiffness, sore throat, ear pain, abdominal pain or vomiting. She is hemodynamically stable on arrival. She has no focal neurological deficits, no meningismus, normal posterior pharynx, cranial nerves II through XII are intact. She has clear lung sounds. Given her body aches and fevers I suspect she is suffering from a viral illness, no findings on exam to suggest [employer] infection. She has CT head 2 days ago which was here for similar complaints which was negative so do not feel imaging of her head is indicated. She is declining any blood work or IV therapy due to fear of needles but is willing to have IM injections so Compazine and Toradol ordered. Will obtain chest x-ray for cough and obtain Fluvid and reassess Patient stable and feels better, x-ray unremarkable, she is positive for flu A. She is stable for discharge and will follow-up with her PCP if not improving and return precautions given Differential Diagnosis Differential Diagnosis: Viral illness, migraine, pneumonia Medical Records Medical records reviewed: Yes I reviewed the patient's medical records. Lab Data Lab results reviewed: Yes I reviewed the patient's lab results. Quality:[facility] Health Related Social Needs: No Data to Display PFSH All Active Problems (Updated 05/18/24 @ 12:35 by Wilmer Chandler MD) Influenza A (Acute) Cough (Acute) Upper respiratory infection, viral (Acute) Panic attack (Acute) Migraine headache with aura (Acute) Co-occurrence of multiple psychiatric disorders (Acute) Encounter for well adult exam without abnormal findings (Acute) Screening examination for STI (Acute) Food insecurity (Acute) Nicotine dependence (Acute) IUD surveillance (Acute 11/01/21) Mirena Lipoblastoma (Chronic) Bipolar 2 disorder, major depressive episode (Chronic) with worsening anxiety and worsening dissociative symptoms during depression ADHD (attention deficit hyperactivity disorder), combined type (Chronic) Anxiety (Chronic) Depersonalization-derealization disorder (Chronic) Myopia of both eyes (Chronic 11/13/14) Wears glasses Medical History (Updated 05/18/24 @ 12:35 by Wilmer Chandler MD) Post concussive syndrome COVID-19 moderate symptoms, normal EKG, persistent brain fog and some worsening disassociative thoughts Menorrhagia with irregular cycle (03/01/17) Managed with Mirena Surgical History 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 (~2012) R eye Family History Mother Healthy adult Mental disorder anxiety Father Healthy adult Alcohol abuse in remission Other Anxiety Social History (Updated 12/06/23 @ 09:14 by Ayleen Adamson RN) Smoking/Tobacco Use Status: Current every day Tobacco Type: e-cigarettes Tobacco: How many years used: 3 Quit status: not considering quitting Smoking risk assessment performed?: Yes Alcohol Intake: never Drug use: Never Substance use type: does not use Adopted: No Caregiver/Support person: No Foster care: No Household members: none Housing: other Details: Dorms at [facility] Number of Children: 0 number of grandchildren: 0 Communication Needs: Corrective Lenses Education Level: college Details: [employer] at [employer] fall 2023, living in dorm. Pets and animals: Yes (3 dogs at dads) Pets and animals: dog(s) Sexually active: Yes Do you think of yourself as: straight/heterosexual Current gender identity: female Do you feel safe at home: Yes Do you feel safe in your relationship?: Yes Female Reproductive History Menstrual Age of Menarche: 15 Duration of menses: 3-5 days control method: progestin IUCD and condoms History History 0 Para Hx # Term Pregnancies Multiple births Hx # Pregnancies Ectopic pregnancies AB induced Hx Number of Living Children AB spontaneous
[2024-05-18] MEDS: Ketorolac 15 MG/ML VIAL IM (11:35)
[2024-05-18] MEDS: Prochlorperazine 10 MG/2 ML VIAL IM (11:35)
--- NOTE | 2024-05-18 12:14 | DI.VRAD_ITS ---
PROCEDURE INFORMATION: Exam: XR Chest Exam date and time: 05/18/2024 11:56 AM Age: 23 years old Clinical indication: Cough TECHNIQUE: Imaging protocol: Radiologic exam of the chest. Views: 2 views. COMPARISON: No relevant prior studies available. FINDINGS: Lungs: Unremarkable. No consolidation. Pleural spaces: Unremarkable. No pleural effusion. No pneumothorax. Heart/Mediastinum: Unremarkable. No cardiomegaly. Bones/joints: Unremarkable. IMPRESSION: No acute findings. Dictated and Authenticated by: Colton Rutledge MD. Ordering:VICK Guillen MD
[2024-05-18 12:20] LABS: COVID-19 PCR Negative (Negative); Influenza A PCR Positive (Negative); Influenza B PCR Negative (Negative); RSV PCR Negative (Negative)
[2024-05-18 12:23] LABS: Source Nasopharynx
== END 2024-05-18 13:49 | disposition home or self-care (01) ==
PROVIDERS: Emergency Provider Emergency Medicine; PCP Nurse Practitioner Family
DX: J10.1 Influenza due to other identified influenza virus with other respiratory manifestations (principal); R50.9 Fever, unspecified; F17.290 Nicotine dependence, other tobacco product, uncomplicated
CPT/HCPCS: 87637; 96372; 99284; 71046; 99283; J0780; J1885

== ENCOUNTER 2024-06-17 17:24 | Outpatient (REF) | payer MEDICAID, SELFPAY | END 2024-06-17 17:25 | disposition home or self-care (01) | LOC: LBN 17:24 | PROVIDERS: PCP Nurse Practitioner Family; Visit Provider Nurse Practitioner Family | DX: J02.9 Acute pharyngitis, unspecified (principal) | CPT/HCPCS: 87070 ==

== ENCOUNTER 2024-08-27 14:29 | Outpatient (REF) | payer MEDICAID, SELFPAY | END 2024-08-27 14:30 | disposition home or self-care (01) | LOC: LBN 14:29 | PROVIDERS: PCP Nurse Practitioner Family; Visit Provider Obstetrics & Gynecology | DX: Z12.4 Encounter for screening for malignant neoplasm of cervix (principal); B37.9 Candidiasis, unspecified | CPT/HCPCS: 88142 ==